=== PATIENT | male | born 1990 | race Hispanic/Latino ===

== ENCOUNTER 2021-03-18 11:05 | Emergency (ER) | payer MEDICAID, OTHER ==
[~2021-03-18] VITALS: Ht 172.7 cm; Wt 68.0 kg
[2021-03-18] MEDS ORDERED: DIPHENHYDRAMINE HCL 25 MG CAPSULE PO ONE (13:00)
[2021-03-18] MEDS ORDERED: ACETAMINOPHEN WITH CODEINE 1 TAB TAB PO ONE (13:00)
[2021-03-18] MEDS ORDERED: D-ME1POW16 PO (13:03)
[2021-03-18 13:27] VITALS: BP 115/65
== END 2021-03-18 14:08 | disposition home or self-care (01) ==
LOC: EDH 11:05
DX: B34.9 Viral infection, unspecified (principal); Z20.822 Contact with and (suspected) exposure to COVID-19
CPT/HCPCS: 71045; 87635; 87804 ×2; 87880; 99284; C9803

== ENCOUNTER 2022-08-12 20:59 | Emergency (ER) | payer OTHER ==
[~2022-08-12] VITALS: Ht 172.7 cm; Wt 73.9 kg
[~2022-08-12 20:59] MED LIST: D-ME1POW16 PO
[2022-08-12 23:17] LABS: BASOPHILS % (AUTO) 0.2 % (0.0-5.0); EOSINOPHILS % (AUTO) 0.1 % (0.0-8.0); HEMATOCRIT 45.3 % (42-54); LYMPHOCYTES % (AUTO) 6.5 % (21.0-51.0); MEAN CORPUSCULAR HEMOGLOBIN 29.8 pg (27.0-33.0); MEAN CORPUSCULAR HGB CONC 33.8 g/dL (32.0-36.0); MEAN CORPUSCULAR VOLUME 88.1 fL (79-99); MONOCYTES % (AUTO) 4.1 % (3.0-13.0); NEUTROPHILS % (AUTO) 88.9 % (40.0-77.0); PLATELET COUNT (AUTO) 236 K/uL (130-400); RED BLOOD CELL COUNT(AUTO) 5.14 MIL/uL (4.50-6.20); RED CELL DISTRIBUTION WIDTH 13.1 % (11.0-15.5); WHITE BLOOD COUNT (AUTO) 8.9 K/uL (4.8-10.8)
[2022-08-12 23:27] LABS: CREATININE 1.1 mg/dL (0.5-1.5); POTASSIUM 3.3 mmol/L (3.5-5.1)
[2022-08-12 23:32] LABS: ALBUMIN 4.6 g/dL (3.5-5.0); TOTAL PROTEIN, SERUM 8.1 g/dL (6.0-8.3)
[2022-08-13] MEDS ORDERED: 0.9%NACL 1000ML 1,000 ML IV ONE
[2022-08-13] MEDS ORDERED: ONDANSETRON 4MG INJ IVP ONE
[2022-08-13] MEDS ORDERED: ACETAMINOPHEN 500 MG TABLET PO ONE
[2022-08-13] MEDS ORDERED: MORPHINE 2 MG SYG IVP ONE (00:30)
[2022-08-13 01:56] LABS: APPEARANCE,URINE CLEAR (CLEAR); BILIRUBIN,URINE NEGATIVE (NEGATIVE); COLOR,URINE LIGHT-YELLOW (YELLOW); GLUCOSE, URINE (UA) NEGATIVE (NEGATIVE); KETONES,URINE NEGATIVE (NEGATIVE); LEUKOCYTE ESTERASE ,URINE NEGATIVE Leu/uL (NEGATIVE); NITRATE,URINE NEGATIVE (NEGATIVE); OCCULT BLOOD,URINE NEGATIVE (NEGATIVE); PROTEIN,URINE NEGATIVE (NEGATIVE); UROBILINOGEN,URINE 0.2 mg/dL (0.2-1.0)
[2022-08-13 03:56] VITALS: BP 124/78
[2022-08-13] MEDS ORDERED: HYOS0.124 SL (03:56)
[2022-08-13] MEDS ORDERED: ONDA4TAB10 PO (03:56)
== END 2022-08-13 04:22 | disposition home or self-care (01) ==
LOC: EDH 20:59
DX: K52.9 Noninfective gastroenteritis and colitis, unspecified (principal); E86.0 Dehydration; Z20.822 Contact with and (suspected) exposure to COVID-19
CPT/HCPCS: 99284; 87635; 80053; 83690; 85025; 87804 ×2; 81003; 36415; 96374; 96375; C9803; J2405; J7030